=== PATIENT | female | born 1950 | race Caucasian/White ===

== ENCOUNTER 2023-06-29 07:52 | Day surgery (SDC) | payer MEDICARE, OTHER ==
[~2023-06-29 07:52] MED LIST: Lactated Ringers 1,000 ML IV SCH; Morphine 8 MG, EPINEPHrine 0.3 MG, Cefuroxime 750 MG, Ketorolac 30 MG, Sodium Chloride ... PRN; Sodium Chloride 0.9% 10 ML Syringe FLUSH PRN; Sodium Chloride 0.9% 10 ML Syringe FLUSH SCH
[2023-06-29] MEDS ORDERED: HYDROmorphone 0.5 MG/0.5 ML Syringe IVPUSH PRN ×2 (08:01→08:37)
[2023-06-29] MEDS ORDERED: Naloxone 0.4 MG/ML SDV IVPUSH PRN ×2 (08:01→08:37)
[2023-06-29] MEDS ORDERED: Ondansetron 4 MG/2 ML SDV IVPUSH PRN ×2 (08:01→08:37)
[2023-06-29] MEDS ORDERED: fentaNYL 100 MCG/2 ML SDV IVPUSH PRN ×2 (08:01→08:37)
[2023-06-29] MEDS ORDERED: Pregabalin 25 MG Cap PO SCH (08:15)
[2023-06-29] MEDS ORDERED: oxyCODONE ER 10 MG TAB.ER PO SCH (08:15)
[2023-06-29] MEDS ORDERED: Acetaminophen 325 MG Tab PO SCH (08:15)
[2023-06-29] MEDS ORDERED: Propofol 200 MG/20 ML SDV ONE ×2 (09:01→10:43)
[2023-06-29] MEDS ORDERED: fentaNYL 100 MCG/2 ML SDV ONE (09:02)
[2023-06-29] MEDS ORDERED: Midazolam 1 MG/ML 2 ML SDV ONE (09:02)
[2023-06-29] MEDS ORDERED: Tranexamic Acid 1,000 MG/10 ML Vial ONE (09:12)
[2023-06-29] MEDS ORDERED: Vancomycin 1 GM SDV ONE (09:12)
[2023-06-29] MEDS ORDERED: ceFAZolin 2 GM Vial ONE (10:17)
[2023-06-29] MEDS ORDERED: Lactated Ringers 1,000 ML IV ONE (10:30)
[2023-06-29] MEDS ORDERED: ePHEDrine 50 MG/ML SDV ONE (11:07)
[2023-06-29] MEDS ORDERED: Phenylephrine 1% 10 MG/ML SDV ONE (11:07)
[2023-06-29] MEDS ORDERED: Ropivacaine 0.5% 5 MG/ML 30 ML SDV ONE (11:49)
[2023-06-29] MEDS ORDERED: Cyclobenzaprine 10 MG Tab PO PRN (13:45)
[2023-06-29] MEDS: oxyCODONE 5 MG Tab PO PRN ×2 (15:01→15:24)
== END 2023-06-29 15:52 | disposition home or self-care (01) ==
LOC: JD.SDS 07:52
PROVIDERS: ATTEND Orthopaedic Surgery
DX: M17.11 Unilateral primary osteoarthritis, right knee (principal); E03.9 Hypothyroidism, unspecified; E78.2 Mixed hyperlipidemia; R73.03 Prediabetes; K21.9 Gastro-esophageal reflux disease without esophagitis; Z79.84 Long term (current) use of oral hypoglycemic drugs; Z79.890 Hormone replacement therapy; Z79.899 Other long term (current) drug therapy
CPT/HCPCS: 01402; 64447; 73560-26-RT; 73560-RT; 97116-GP; 97161-GP; 99100; A9270-GY; C1713; C1776; J0171; J0690; J0697; J1885; J2250; J2270; J2371; J2704; J2795; J3010; J3370; J3490; J7030; J7120